=== PATIENT | female | born 1995 | race Caucasian/White ===

== ENCOUNTER 2019-06-07 16:37 | Emergency (ER) | payer BC ==
[~2019-06-07] VITALS: Ht 162.6 cm; Wt 65.0 kg
[2019-06-07] MEDS: morphine 2 MG/ML inj. syringe IV PRN ×3 (17:49→18:17)
[2019-06-07 17:51] LABS: BASOPHILS % (AUTO) 0.1 % (0-1); EOSINOPHILS % (AUTO) 0.1 % (0-6); HEMATOCRIT 42.7 % (35.0-45.0); HEMOGLOBIN 14.3 g/dl (12.0-16.0); LYMPHOCYTES # (AUTO) 1.9 X10'3 (1.1-4.8); LYMPHOCYTES % (AUTO) 10.5 % (21-51); MEAN CORPUSCULAR HEMOGLOBIN 29.2 PG (27.0-31.0); MEAN CORPUSCULAR HGB CONC 33.5 g/dL (33.0-36.5); MEAN CORPUSCULAR VOLUME 86.9 FL (78-98); MEAN PLATELET VOLUME 7.6 FL (7.4-10.4); MONOCYTES # (AUTO) 0.9 X10'3 (0-0.9); MONOCYTES % (AUTO) 4.9 % (2-12); NEUTROPHILS % (AUTO) 84.4 % (42-75); PLATELET COUNT 343 X10'3 (140-440); RED BLOOD COUNT 4.91 X10'6 (4.20-5.60); RED CELL DISTRIBUTION WIDTH 13.1 % (11.5-14.5); WHITE BLOOD COUNT 17.8 X10'3 (4.5-11.0)
[2019-06-07 18:01] LABS: PARTIAL THROMBOPLASTIN TIME 23 SECONDS (22-32)
[2019-06-07 18:04] LABS: ALANINE AMINOTRANSFERASE 43 U/L (12-78); ALBUMIN 4.6 G/DL (3.4-5.0); ALBUMIN/GLOBULIN RATIO 1.2 (1.1-1.5); ALKALINE PHOSPHATASE 117 IU/L (46-116); ANION GAP 11 (8-16); ASPARTATE AMINO TRANSFERASE 29 U/L (10-37); BILIRUBIN,TOTAL 0.3 MG/DL (0.1-1.0); BLOOD UREA NITROGEN 14 MG/DL (7-18); BUN/CREATININE RATIO 16.1 (6.6-38.0); CALCIUM 8.9 MG/DL (8.5-10.1); CHLORIDE 105 MMOL/L (99-107); CREATININE 0.87 MG/DL (0.40-0.90); GLUCOSE 93 MG/DL (70-104); POTASSIUM 3.8 MMOL/L (3.5-5.1); SODIUM 141 MMOL/L (135-145); TOTAL CARBON DIOXIDE 24.6 MMOL/L (24-32); TOTAL PROTEIN 8.3 G/DL (6.4-8.2); eGFR 80 ML/MIN
[2019-06-07] MEDS ORDERED: NO HOME MEDS (18:04)
[2019-06-07 18:08] LABS: COLOR,URINE YELLOW (Yellow); GLUCOSE, URINE NEGATIVE (Neg); KETONES,URINE NEGATIVE (Neg); LEUKOCYTE ESTERASE ,URINE NEGATIVE (Neg); NITRITES, URINE NEGATIVE (Neg); OCCULT BLOOD,URINE NEGATIVE (Neg); PH,URINE 5.5 (4.8-8.0); PROTEIN,URINE NEGATIVE (Neg); UROBILINOGEN,URINE 0.2 E.U/dL (0.2-1.0)
[2019-06-07] MEDS ORDERED: normal saline 1000ML IV soln IVB ONE (18:10)
[2019-06-07 18:15] LABS: CLARITY,URINE CLEAR (Clear); UA COLLECTION TYPE FOLEY CATH
[2019-06-07 18:20] VITALS: BP 127/86
--- NOTE | 2019-06-07 18:27 | NUR ---
[facility] transport crew is at the bedside preparing for transport to [facility]. Pt has been medicated for pain. Vitals stable. Pt is alert and cooperative with plan of care.
== END 2019-06-07 18:32 | disposition short-term general hospital (02) ==
LOC: ER 16:37
DX: S32.020A Wedge compression fracture of second lumbar vertebra, initial encounter for closed fracture (principal); R11.2 Nausea with vomiting, unspecified; V00.311A Fall from snowboard, initial encounter; Y93.23 Activity, snow (alpine) (downhill) skiing, snowboarding, sledding, tobogganing and snow tubing; Y92.89 Other specified places as the place of occurrence of the external cause; Y99.9 Unspecified external cause status
CPT/HCPCS: 36415; 72131; 80053; 81003; 85025; 85610; 85730; 96374; 99291; J2270; J7030; 96361

== ENCOUNTER 2021-12-02 07:41 | Emergency (ER) | payer BC, OTHER ==
[~2021-12-02] VITALS: Ht 160 cm; Wt 70.0 kg
[~2021-12-02 07:41] MED LIST: NO HOME MEDS
[2021-12-02 08:58] LABS: URINE HCG NEGATIVE (NEG)
[2021-12-02 08:59] LABS: BASOPHILS # (AUTO) 0.1 X10'3 (0-0.2); BASOPHILS % (AUTO) 1.1 % (0-1); EOSINOPHILS # (AUTO) 0.2 X10'3 (0-0.9); EOSINOPHILS % (AUTO) 1.9 % (0-6); HEMATOCRIT 43.9 % (35.0-45.0); HEMOGLOBIN 15.2 g/dl (12.0-16.0); LYMPHOCYTES # (AUTO) 3.4 X10'3 (1.1-4.8); LYMPHOCYTES % (AUTO) 39.7 % (21-51); MEAN CORPUSCULAR HEMOGLOBIN 29.9 PG (27.0-31.0); MEAN CORPUSCULAR HGB CONC 34.6 g/dL (33.0-36.5); MEAN CORPUSCULAR VOLUME 86.3 FL (78-98); MEAN PLATELET VOLUME 7.5 FL (7.4-10.4); MONOCYTES # (AUTO) 0.6 X10'3 (0-0.9); MONOCYTES % (AUTO) 6.7 % (2-12); NEUTROPHILS # (AUTO) 4.4 X10'3 (1.8-7.7); NEUTROPHILS % (AUTO) 50.6 % (42-75); PLATELET COUNT 313 X10'3 (140-440); RED BLOOD COUNT 5.09 X10'6 (4.20-5.60); RED CELL DISTRIBUTION WIDTH 12.2 % (11.5-14.5); WHITE BLOOD COUNT 8.7 X10'3 (4.5-11.0)
[2021-12-02 09:00] LABS: CLARITY,URINE SLIGHTLY CLOUDY (Clear); COLOR,URINE YELLOW (Yellow); GLUCOSE, URINE NEGATIVE (Neg); KETONES,URINE NEGATIVE (Neg); LEUKOCYTE ESTERASE ,URINE NEGATIVE (Neg); NITRITES, URINE NEGATIVE (Neg); OCCULT BLOOD,URINE NEGATIVE (Neg); PH,URINE 5.5 (4.8-8.0); PROTEIN,URINE NEGATIVE (Neg); UROBILINOGEN,URINE 0.2 E.U/dL (0.2-1.0)
[2021-12-02 09:01] LABS: UA COLLECTION TYPE CLN CATCH MIDSTREAM
[2021-12-02 09:07] LABS: ALANINE AMINOTRANSFERASE 59 U/L (12-78); ALBUMIN 3.6 G/DL (3.4-5.0); ALBUMIN/GLOBULIN RATIO 0.8 (1.1-1.5); ALKALINE PHOSPHATASE 96 IU/L (46-116); ANION GAP 11 (8-16); ASPARTATE AMINO TRANSFERASE 25 U/L (10-37); BILIRUBIN,TOTAL 0.3 MG/DL (0.1-1.0); BLOOD UREA NITROGEN 10 MG/DL (7-18); BUN/CREATININE RATIO 11.2 (6.6-38.0); CALCIUM 9.3 MG/DL (8.5-10.1); CHLORIDE 104 MMOL/L (99-107); CREATININE 0.89 MG/DL (0.40-0.90); GLUCOSE 97 MG/DL (70-104); LIPASE 101 U/L (73-393); POTASSIUM 3.9 MMOL/L (3.5-5.1); SODIUM 140 MMOL/L (135-145); TOTAL CARBON DIOXIDE 24.8 MMOL/L (24-32); eGFR 76 ML/MIN
[2021-12-02 09:07] LABS: BACTERIA,URINE 2+ /HPF (Neg); MUCUS STRANDS MANY /LPF (Neg); RBC,URINE 0-2 /HPF (0-2); SQUAMOUS EPITHELIAL CELL,UR MANY /LPF (FEW); WBC,URINE 0-4 /HPF (0-4)
[2021-12-02] MEDS ORDERED: METR-159 PO (12:34)
[2021-12-02] MEDS ORDERED: ONDA-103 PO (12:35)
[2021-12-02 12:56] VITALS: BP 144/88
== END 2021-12-02 12:58 | disposition home or self-care (01) ==
LOC: ER 07:41
DX: U07.1 COVID-19 (principal); K52.9 Noninfective gastroenteritis and colitis, unspecified; Z72.89 Other problems related to lifestyle; Z79.899 Other long term (current) drug therapy
CPT/HCPCS: 36415; 74176; 80053; 81001; 81025; 83690; 85025; 99284

== ENCOUNTER 2023-12-16 04:26 | Emergency (ER) | payer OTHER ==
[~2023-12-16] VITALS: Ht 160 cm; Wt 72.7 kg
[~2023-12-16 04:26] MED LIST changes: +ONDA-103 PO
[2023-12-16 05:09] LABS: URINE HCG NEGATIVE (NEG)
[2023-12-16 05:10] LABS: BILIRUBIN,URINE NEGATIVE (Neg); CLARITY,URINE CLOUDY (Clear); COLOR,URINE YELLOW (Yellow); GLUCOSE, URINE NEGATIVE (Neg); KETONES,URINE NEGATIVE (Neg); LEUKOCYTE ESTERASE ,URINE TRACE (Neg); NITRITES, URINE NEGATIVE (Neg); OCCULT BLOOD,URINE NEGATIVE (Neg); PH,URINE 5.5 (4.8-8.0); PROTEIN,URINE NEGATIVE (Neg); UROBILINOGEN,URINE 0.2 E.U/dL (0.2-1.0)
[2023-12-16] MEDS: ketorolac trometh. 30mg/ml inj. IM ONE (05:10)
[2023-12-16 05:29] LABS: UA COLLECTION TYPE CLN CATCH MIDSTREAM
[2023-12-16 05:30] LABS: BACTERIA,URINE 2+ /HPF (Neg); RBC,URINE 0-2 /HPF (0-2); SQUAMOUS EPITHELIAL CELL,UR MANY /LPF (FEW)
[2023-12-16] MEDS ORDERED: NITR100C6 PO (06:01)
[2023-12-16 06:15] VITALS: BP 126/68; PULSE 75; RESP 14; TEMP 98.1; O2SAT 99
[2023-12-16] MEDS: nitrofuran monohydrate/nitrofuran macrocrysal 100 MG (MacroBID) capsule PO ONE (06:18)
== END 2023-12-16 06:19 | disposition home or self-care (01) ==
LOC: ER 04:26
DX: N39.0 Urinary tract infection, site not specified (principal); R10.2 Pelvic and perineal pain; Z79.899 Other long term (current) drug therapy; Z72.89 Other problems related to lifestyle
CPT/HCPCS: 76830; 76856; 81001; 81025; 93976; 96372; 99285; J1885